=== PATIENT | female | born 1985 | race Two or more races ===

== ENCOUNTER 2022-03-17 12:36 | Emergency (ER) | payer SELFPAY ==
[2022-03-17] MEDS ORDERED: ONDANSETRON 4 MG/2 ML VIAL IVP STA (13:04)
[2022-03-17] MEDS ORDERED: SODIUM CHLORIDE 0.9% 1,000 ML IV STA (13:04)
[2022-03-17] MEDS ORDERED: KETOROLAC 15 MG/ML VIAL IVP STA (13:04)
--- NOTE | 2022-03-17 13:05 | ED Physician Documentation ---
PD HPI ABD PAIN - Stated complaint Stated Complaint: STOMACH PAIN,CHILLS SOA - Chief complaint Chief Complaint: Abd Pain - History obtained from History obtained from: Patient, Other (spanish interpreter) - Additional information Additional information: 36-year-old woman has had 2 weeks of constant epigastric pain radiating to the back and shoulders. It is worse after eating. Its associated with nausea and nonbloody emesis as well as occasional diarrhea and a fever to 100.4. She is never had this before. No history of abdominal surgeries. She has a history remotely of purpura that has resolved. No recent easy bleeding or bruising. Review of Systems Ten Systems: 10 systems reviewed and negative Constitutional: reports: Fever, Chills, Fatigue Throat: denies: Sore throat Cardiac: denies: Chest pain / pressure, Palpitations Respiratory: denies: Dyspnea PD PAST MEDICAL HISTORY - Present Medications Home Medications: Ambulatory Orders Medication Instructions Recorded Confirmed HYDROcod/ACETAM 5/325 [[place] 5/325] 1 - 2 tab PO Q6H PRN #20 tablet 03/17/22 - Allergies Allergies/Adverse Reactions: Allergies Allergy/AdvReac Type Severity Reaction Status Date / Time No Known Drug Allergies Allergy Verified 03/17/22 12:50 PD ED PE NORMAL - Vitals Vital signs reviewed: Yes (Normal vitals) - General General: Alert and oriented X 3, No acute distress - HEENT HEENT: PERRL, EOMI - Neck Neck: Supple, no meningeal sign, No bony TTP - Cardiac Cardiac: RRR, No murmur - Respiratory Respiratory: No respiratory distress, Clear bilaterally - Abdomen Abdomen: Normal bowel sounds, Other (Mild tenderness in the epigastrium and right upper quadrant with equivocal Herring sign) - Back Back: No CVA TTP, No spinal TTP - Derm Derm: Normal color, Warm and dry - Extremities Extremities: No edema, No calf tenderness / cord - Neuro Neuro: Alert and oriented X 3, Normal speech Results - Vitals Vitals: Vital Signs - 24 hr 03/17/22 12:44 Temperature 36.3 C L Heart Rate 66 Respiratory 16 Rate Blood Pressure 124/78 O2 Saturation 98 Oxygen O2 Source Room air - Labs Labs: Laboratory Tests 03/17/22 03/17/22 03/17/22 13:10 13:10 13:10 WBC 7.9 RBC 4.39 Hgb 13.0 Hct 39.0 MCV 88.8 MCH 29.6 MCHC 33.3 RDW 13.1 Plt Count 308 MPV 9.5 Neut # (Auto) 4.1 Lymph # (Auto) 2.2 [place] # (Auto) 0.9 Eos # (Auto) 0.6 Baso # (Auto) 0.0 Absolute Nucleated RBC 0.00 Nucleated RBC % 0.0 Sodium 140 Potassium 3.7 Chloride 108 Carbon Dioxide 26 Anion Gap 6.0 BUN 10 Creatinine 0.6 Estimated GFR (MDRD) 114 Glucose 97 Calcium 9.0 Total Bilirubin 0.9 AST 21 ALT 36 Alkaline Phosphatase 80 Total Protein 8.0 Albumin 4.0 Globulin 4.0 Albumin/Globulin Ratio 1.0 Lipase 39 Urine Color YELLOW Urine Clarity HAZY Urine pH 5.5 Ur Specific [place] >=1.030 H Urine Protein NEGATIVE Urine Glucose (UA) NEGATIVE Urine Ketones NEGATIVE Urine Occult Blood MODERATE H Urine Nitrite NEGATIVE Urine Bilirubin NEGATIVE Urine Urobilinogen 0.2 (NORMAL) Ur Leukocyte Esterase TRACE H Urine RBC 11-25 H Urine WBC 6-10 H Ur Squamous Epith Cells MOD Squamous H Urine Bacteria Few Ur Microscopic Review INDICATED Urine Culture Comments NOT INDICATED Urine HCG, Qual NEGATIVE PD MEDICAL DECISION MAKING - ED course ED course: 36-year-old woman presents with pain and nausea most consistent with biliary colic. Preliminary report from the surgical appliance fitter is that the gallbladder has multiple stones but no evidence of cholecystitis. Her common bile duct was normal. There was a question on ultrasound of choledocholithiasis, that said with a normal bile duct and no evidence of obstructive pattern on her labs I find this to be unlikely. She was feeling better after Toradol and Zofran and IV fluids. The patient and family were counseled as to the diagnosis and need for follow- up. I counseled the patient with regard to signs and symptoms that would necessitate an urgent reevaluation in the emergency department. They understand they are welcome to return at any time if worse or if not improving as expected. This document was made in part using voice recognition software. While efforts are made to proofread this documents, sound alike and grammatical errors may occur. Departure - Departure Disposition: 01 Home, Self Care Clinical Impression: Biliary colic Condition: Good Record reviewed to determine appropriate education?: Yes Instructions: ED Gallstone W Biliary Colic Follow-Up: [facility] [Provider Group] Prescriptions: HYDROcod/ACETAM 5/325 [[place] 5/325] 1 - 2 tab PO Q6H PRN #20 tablet PRN Reason: Pain Print Language: Khmer Comments: Tiene muchos clculos en la vescula biliar. Sin embargo, no hay signos de infeccin. Es probable que eventualmente necesite que le excluyan la vescula biliar. Llame al cirujano que aparece en joyce formulario el lunes para krish neil para la discusin. Regrese para sntomas nuevos o que empeoran. Coma krish dieta muy ligera con un mnimo de grasas y protenas, grasas y protenas empeorar schroeder dolor. Envi schroeder receta electrnicamente a [employer] en [place]. Estoy recetando un curso corto de analgsicos narcticos para usted. Estos son medicamentos potencialmente peligrosos y adictivos que deben usarse con cuidado. Estos medicamentos pueden estreirlo. [place] un ablandador de heces de venta valentina (docusato) dos veces al da con abundante agua mientras jennifer estos medicamentos. Si pasa 24 horas sin defecar, tome miralax de venta valentina, segn las instrucciones del paquete. No esmer ni conduzca mientras est tomando estos medicamentos. Si recibi medicamentos narcticos o sedantes mientras estaba en el departamento de emergencias, no conduzca kailyn 24 horas. Guarde joyce medicamento en un lugar seguro y fuera del alcance de los nios. Es krish violacin de la lazara federal chandu o detasseler joyce medicamento a otra persona o usarlo de krish manera distinta a la recetada. El ED no volver a surtir recetas de narcticos, incluidas las recetas perdidas o robadas. Para deshacerse de los medicamentos no deseados: 2. El Departamento de [place] de la [facility] acepta medicamentos recetados (solo en forma de pldora) para schroeder eliminacin kailyn todo el ao. Yury al para obtener ms informacin. 3. Comunquese con el Mobility Architect del [place] para el prximo evento de recoleccin de medicamentos recetados patrocinado por la OLGA. , [phone], o [phone];
[2022-03-17 13:22] LABS: BILIRUBIN,URINE NEGATIVE (NEGATIVE); GLUCOSE, URINE (UA) NEGATIVE (NEGATIVE); KETONES,URINE (UA) NEGATIVE (NEGATIVE); LEUKOCYTE ESTERASE, URINE TRACE (NEGATIVE); NITRITE,URINE NEGATIVE (NEGATIVE); OCCULT BLOOD,URINE MODERATE (NEGATIVE); PH,URINE 5.5 PH (5.0-7.5); PROTEIN,URINE NEGATIVE (NEGATIVE); UROBILINOGEN,URINE 0.2 (NORMAL) E.U./dL (NORMAL)
[2022-03-17 13:23] LABS: BASOPHILS % (AUTO) 0.4 %; EOSINOPHILS # (AUTO) 0.6 10^3/uL (0.0-0.7); EOSINOPHILS % (AUTO) 7.7 %; LYMPHOCYTES # (AUTO) 2.2 10^3/uL (1.5-3.5); LYMPHOCYTES % (AUTO) 28.4 %; MEAN CORPUSCULAR HEMOGLOBIN 29.6 pg (27.0-31.0); MEAN CORPUSCULAR HGB CONC 33.3 g/dL (32.0-36.0); MEAN CORPUSCULAR VOLUME 88.8 fL (81.0-99.0); MEAN PLATELET VOLUME 9.5 fL (7.9-10.8); MONOCYTES # (AUTO) 0.9 10^3/uL (0.0-1.0); NEUTROPHILS # (AUTO) 4.1 10^3/uL (1.5-6.6); NEUTROPHILS % (AUTO) 52.2 %; PLT - PLATELET COUNT 308 10^3/uL (130-450); RED BLOOD COUNT 4.39 10^6/uL (4.20-5.40); RED CELL DISTRIBUTION WIDTH 13.1 % (12.0-15.0); WHITE BLOOD COUNT 7.9 x10^3/uL (4.8-10.8)
[2022-03-17 13:25] LABS: CLARITY,URINE HAZY (CLEAR); HCG UR QUAL NEGATIVE
[2022-03-17 13:32] LABS: BACTERIA,URINE Few /HPF (None Seen); SQUAMOUS EPITHELIAL CELL,UR MOD Squamous (<= Few)
[2022-03-17 13:33] LABS: BILIRUBIN,TOTAL 0.9 mg/dL (0.2-1.0); CREATININE 0.6 mg/dL (0.4-1.0); POTASSIUM 3.7 mmol/L (3.5-5.0)
[2022-03-17 14:45] VITALS: BP 118/73
--- NOTE | 2022-03-17 14:46 | Ultrasound Report ---
PROCEDURE: Abdomen Limited INDICATIONS: epigastric/RUQ pain TECHNIQUE: Real-time focused scanning was performed of the abdomen, with image documentation. COMPARISON: None FINDINGS: This study is limited by body habitus and overlying bowel gas. The liver demonstrates normal size. The liver demonstrates moderately increased echogenicity, which limits ultrasound sensitivity for detection of masses. The main portal vein demonstrates normal size and hepatopedal flow. Multiple tiny gallstones are seen, which nearly fill the gallbladder lumen. The gallbladder wall does not appear thickened. There is no specific pericholecystic fluid. The sonographic Herring's sign is n egative. No biliary ductal dilatation is seen. The common bile duct measures 5 mm. There is a potential 6 mm common bile duct stone. Differential diagnosis includes artifact. The pancreas is not well seen. A 4 mm nonobstructing right-sided kidney stone is seen. The right kidney is otherwise unremarkable. IMPRESSION: There is a potential 6 mm common bile duct stone versus artifact. No deborah biliary dilatation is seen , however. When clinically appropriate, please consider a dedicated MRCP for further evaluation (assuming that t here is no contraindication). Numerous gallstones are seen, which nearly fill the gallbladder lumen. No additional sonographic sign s of cholecystitis are seen. Increased liver echogenicity is seen. This is nonspecific, yet it is most commonly attributed to fatt y infiltration. Note: Concordant preliminary findings given by the employee benefits attorney upon the completion of the examination to Dr. Sanchez. Reviewed by: Jaime Covarrubias MD on 03/17/2022 1:44 PM REY Approved by: Jaime Covarrubias MD on 03/17/2022 1:44 PM REY Station ID: [id number]
== END 2022-03-17 14:45 | disposition home or self-care (01) ==
LOC: ED 12:36
DX: K80.50 Calculus of bile duct without cholangitis or cholecystitis without obstruction (principal)
CPT/HCPCS: 36415; 80053; 81001; 81003; 81025; 83690; 85025; 87086; 96374; 99284

== ENCOUNTER 2023-07-27 08:00 | Outpatient (CLI) | payer SELFPAY | END 2023-07-27 23:59 | disposition home or self-care (01) | LOC: LAB.N 08:00 | PROVIDERS: ATTEND Family Medicine | DX: N39.0 Urinary tract infection, site not specified (principal) | CPT/HCPCS: 87086; 87181 ==

== ENCOUNTER 2024-02-17 18:26 | Outpatient (CLI) | payer SELFPAY | END 2024-02-17 23:59 | disposition critical access hospital (66) | LOC: EMS 18:26 | DX: R10.84 Generalized abdominal pain (principal); K92.0 Hematemesis; R19.7 Diarrhea, unspecified; M54.9 Dorsalgia, unspecified; R68.83 Chills (without fever) | CPT/HCPCS: A0425; A0429 ==

== ENCOUNTER 2024-02-17 18:47 | Emergency (ER) | payer SELFPAY ==
[2024-02-17 19:06] VITALS: O2SAT 98
[2024-02-17 19:21] LABS: BASOPHILS % (AUTO) 0.5 %; EOSINOPHILS # (AUTO) 0.5 10^3/uL (0.0-0.7); EOSINOPHILS % (AUTO) 5.1 %; HCT - HEMATOCRIT 41.5 % (37.0-47.0); HGB - HEMOGLOBIN 13.5 g/dL (12.0-16.0); LYMPHOCYTES # (AUTO) 2.7 10^3/uL (1.5-3.5); LYMPHOCYTES % (AUTO) 30.5 %; MEAN CORPUSCULAR HEMOGLOBIN 28.7 pg (27.0-31.0); MEAN CORPUSCULAR HGB CONC 32.5 g/dL (32.0-36.0); MEAN CORPUSCULAR VOLUME 88.1 fL (81.0-99.0); MEAN PLATELET VOLUME 9.2 fL (7.9-10.8); MONOCYTES # (AUTO) 0.6 10^3/uL (0.0-1.0); MONOCYTES % (AUTO) 6.5 %; NEUTROPHILS % (AUTO) 57.1 %; PLT - PLATELET COUNT 333 10^3/uL (130-450); RED BLOOD COUNT 4.71 10^6/uL (4.20-5.40); RED CELL DISTRIBUTION WIDTH 13.1 % (12.0-15.0); WHITE BLOOD COUNT 8.8 x10^3/uL (4.8-10.8)
[2024-02-17 19:40] LABS: ALBUMIN 4.2 g/dL (3.2-5.5); ALBUMIN/GLOBULIN RATIO 1.1 (1.0-2.2); BILIRUBIN,TOTAL 0.6 mg/dL (0.2-1.0); CALCIUM 9.5 mg/dL (8.5-10.3); CREATININE 0.6 mg/dL (0.6-1.3); TOTAL PROTEIN 7.9 g/dL (6.4-8.9)
[2024-02-17 20:05] LABS: BILIRUBIN,URINE NEGATIVE (NEGATIVE); GLUCOSE, URINE (UA) NEGATIVE (NEGATIVE); KETONES,URINE (UA) NEGATIVE (NEGATIVE); LEUKOCYTE ESTERASE, URINE SMALL (NEGATIVE); NITRITE,URINE NEGATIVE (NEGATIVE); OCCULT BLOOD,URINE LARGE (NEGATIVE); PROTEIN,URINE NEGATIVE (NEGATIVE); UROBILINOGEN,URINE 0.2 (NORMAL) E.U./dL (NORMAL)
[2024-02-17 20:06] LABS: CLARITY,URINE HAZY (CLEAR)
[2024-02-17 20:16] LABS: BACTERIA,URINE Few /HPF (None Seen); SQUAMOUS EPITHELIAL CELL,UR NONE SEEN (<= Few)
--- NOTE | 2024-02-17 20:33 | ED Physician Documentation ---
PD HPI ABD PAIN - Stated complaint Stated Complaint: ABD PX - Chief complaint Chief Complaint: Abd Pain - History obtained from History obtained from: Patient - Additional information Additional information: Patient is a 38-year-old female with a prior history of an appendectomy and cholecystectomy presenting for evaluation of generalized abdominal pain which has been present for 2 months. She reports that for the last months she has also had episodes of nausea and vomiting. She feels that the pain is worse after eating. She has not had prior evaluation for this pain. Her surgeries were a year ago. No diarrhea and she had a normal bowel movement a few hours ago. Does report having some discomfort with urination, denies hematuria. No fever. No chest pain or difficulty breathing. Telephone central office repairer used throughout encounter. Review of Systems Constitutional: denies: Fever Cardiac: denies: Chest pain / pressure Respiratory: denies: Dyspnea GI: reports: Abdominal Pain, Nausea, Vomiting. denies: Diarrhea : reports: Dysuria PD PAST MEDICAL HISTORY - Past Medical History Past Medical History: Yes - Past Surgical History Past Surgical History: Yes General: Cholecystectomy - Present Medications Home Medications: Ambulatory Orders Medication Instructions Recorded Confirmed HYDROcod/ACETAM 5/325 [[place] 5/325] 1 - 2 tab PO Q6H PRN #20 tablet 03/17/22 Ondansetron Odt [Zofran] 4 mg TL Q6H PRN #10 tablet 02/17/24 cephALEXin [Keflex] 500 mg PO Q6H #28 cap 02/17/24 - Allergies Allergies/Adverse Reactions: Allergies Allergy/AdvReac Type Severity Reaction Status Date / Time No Known Drug Allergies Allergy Verified 02/17/24 18:53 - Social History Does the pt smoke?: No Smoking Status: Never smoker Does the pt drink ETOH?: No Does the pt have substance abuse?: No - Immunizations Immunizations are current?: Yes - POLST Patient has POLST: No PD ED PE NORMAL - General General: Alert and oriented X 3, No acute distress, Well developed/nourished - HEENT HEENT: Atraumatic - Neck Neck: Supple, no meningeal sign - Cardiac Cardiac: RRR, Strong equal pulses - Respiratory Respiratory: No respiratory distress, Clear bilaterally - Abdomen Abdomen: Normal bowel sounds, Soft, Non distended, Other (Left-sided abdominal tenderness, no rebound, no guarding, no mass) - Derm Derm: Warm and dry - Neuro Neuro: Normal speech Results - Vitals Vitals: Vital Signs - 24 hr 02/17/24 02/17/24 02/17/24 18:53 20:58 23:05 Temperature 36.8 C Heart Rate 74 72 76 Respiratory 16 16 18 Rate Blood Pressure 114/80 118/76 120/81 H O2 Saturation 98 98 98 Oxygen O2 Source Room air - Labs Labs: Laboratory Tests 02/17/24 02/17/24 02/17/24 19:15 19:15 19:54 WBC 8.8 RBC 4.71 Hgb 13.5 Hct 41.5 MCV 88.1 MCH 28.7 MCHC 32.5 RDW 13.1 Plt Count 333 MPV 9.2 Neut # (Auto) 5.0 Lymph # (Auto) 2.7 [place] # (Auto) 0.6 Eos # (Auto) 0.5 Baso # (Auto) 0.0 Absolute Nucleated RBC 0.00 Nucleated RBC % 0.0 Sodium 137 Potassium 4.0 Chloride 104 Carbon Dioxide 28 Anion Gap 5.0 L BUN 12 Creatinine 0.6 Estimated GFR (MDRD) 113 Glucose 120 H Calcium 9.5 Total Bilirubin 0.6 AST 19 ALT 31 Alkaline Phosphatase 119 Total Protein 7.9 Albumin 4.2 Globulin 3.7 Albumin/Globulin Ratio 1.1 Lipase 34 Urine Color YELLOW Urine Clarity HAZY Urine pH 6.0 Ur Specific [place] 1.010 Urine Protein NEGATIVE Urine Glucose (UA) NEGATIVE Urine Ketones NEGATIVE Urine Occult Blood LARGE H Urine Nitrite NEGATIVE Urine Bilirubin NEGATIVE Urine Urobilinogen 0.2 (NORMAL) Ur Leukocyte Esterase SMALL H Urine RBC 6-10 H Urine WBC 6-10 H Ur Squamous Epith Cells NONE SEEN Urine Bacteria Few Ur Microscopic Review INDICATED Urine Culture Comments INDICATED Urine HCG, Qual 02/17/24 19:54 WBC RBC Hgb Hct MCV MCH MCHC RDW Plt Count MPV Neut # (Auto) Lymph # (Auto) [place] # (Auto) Eos # (Auto) Baso # (Auto) Absolute Nucleated RBC Nucleated RBC % Sodium Potassium Chloride Carbon Dioxide Anion Gap BUN Creatinine Estimated GFR (MDRD) Glucose Calcium Total Bilirubin AST ALT Alkaline Phosphatase Total Protein Albumin Globulin Albumin/Globulin Ratio Lipase Urine Color Urine Clarity Urine pH Ur Specific [place] Urine Protein Urine Glucose (UA) Urine Ketones Urine Occult Blood Urine Nitrite Urine Bilirubin Urine Urobilinogen Ur Leukocyte Esterase Urine RBC Urine WBC Ur Squamous Epith Cells Urine Bacteria Ur Microscopic Review Urine Culture Comments Urine HCG, Qual NEGATIVE PD Medical Decision Making - ED course Complexity details: reviewed results, re-evaluated patient, d/w patient ED course: Patient is a 38-year-old female presenting for evaluation of generalized abdominal pain which has been ongoing for 2 months with reported nausea and vomiting. She has mild left-sided tenderness on exam. No pelvic discomfort. Vital signs are stable. CBC and chemistries are unrevealing. Urinalysis has some markers for infection and she does report having some dysuria. CT scan of the abdomen pelvis was obtained which I reviewed With no signs of infection or obstruction. IV morphine and Zofran were ordered for the patient but RN tells me that patient's line infiltrated so he does not believe she actually received any of this medication. She has been otherwise doing well here and resting comfortably. She understands plan for treatment for UTI as well as need for close follow-up as I do not feel that her symptoms over the course of 2 months are solely related to a UTI. Patient counseled on concerning symptoms to return for. Departure - Departure Disposition: 01 Home, Self Care Clinical Impression: Abdominal pain, UTI (urinary tract infection) Condition: Stable Instructions: ED Abdominal Pain Female Non-Specific Abdominal Pain, ED UTI Cystitis Female Prescriptions: cephALEXin [Keflex] 500 mg PO Q6H #28 cap Ondansetron Odt [Zofran] 4 mg TL Q6H PRN #10 tablet PRN Reason: Nausea / Vomiting Print Language: Nepali Comments: I have sent an antibiotic prescription to [facility] as well as an ant inausea medicine. Your abdominal CT does not show any new findings. You do need close follow-up with your primary care provider as your symptoms have been ongoing for 2 months and I do not think that the urine infection necessarily explains at all. Return to the ER if you develop any worsening symptoms. Forms: PCP List, Activity restrictions Discharge Date/Time: 02/17/24 23:06
[2024-02-17 20:34] LABS: HCG UR QUAL NEGATIVE
[2024-02-17] MEDS: MORPHINE 2 MG/ML CARPUJECT IVP STA (20:36)
[2024-02-17] MEDS: ONDANSETRON 4 MG/2 ML VIAL IVP STA (20:37)
[2024-02-17] MEDS: SODIUM CHLORIDE 0.9% 1,000 ML IV STA (20:37)
[2024-02-17] MEDS ORDERED: iohexoL-300 100 ML VIAL ONE (21:20)
[2024-02-17] MEDS: iohexoL-300 100 ML VIAL IVP ONE (21:39)
--- NOTE | 2024-02-17 21:56 | CT Report ---
PROCEDURE: Abdomen/Pelvis W INDICATIONS: L > R abd pain CONTRAST: Omni 300, 100mls TECHNIQUE: After the administration of intravenous contrast, a CT scan of the abdomen and pelvis was performed. Images were recorded and evaluated at appropriate window settings. Reformats: coronal and sagittal. F or radiation dose reduction, the following was used: automated exposure control, adjustment of mA and /or kV according to patient size. COMPARISON: Ultrasound of abdomen dated 03/17/2022. FINDINGS: Image quality: Diagnostic. Lower chest: Unremarkable. Liver: No solid mass. Gallbladder: Gallbladder is surgically absent. Biliary tree: No intrahepatic or extrahepatic dilation, accounting for age. Spleen: No splenomegaly. Pancreas: No pancreatic ductal dilation. Adrenals: No adrenal nodule. Kidneys and ureters: No hydronephrosis. No renal cystic lesion which requires follow up. No solid mas s. Stomach, bowel and peritoneum: No gastric or small bowel dilation. No abnormal wall thickening. No pa thologic free fluid. There is prior appendectomy. Mild sigmoid diverticulosis is seen without CT evid ence of acute diverticulitis. No peritoneal free air. Lymph nodes: No central or retroperitoneal adenopathy. Vessels: No infrarenal aortic aneurysm. Patent portal vein. PELVIS Reproductive organs: Intrauterine device is noted in its normal central endometrial location. No ted s abnormality is seen in bilateral ovaries.. Bladder: No abnormal wall thickening, accounting for underdistention. Pelvic lymph nodes: No pelvic adenopathy by size criteria. Bones: No aggressive osseous abnormality. Other: No significant ventral or inguinal hernia. IMPRESSION: 1. No acute inflammatory process is seen in abdomen or pelvis. No free fluid of free air. 2. Prior appendectomy and cholecystectomy. 3. Intrauterine device is noted and is in its expected central endometrial location. Reviewed by: Jose Espinal MD on 02/17/2024 9:55 PM PDT Approved by: Jose Espinal MD on 02/17/2024 9:55 PM PDT Station ID: [id number]
[2024-02-17] MEDS: cephALEXin 250 MG CAPSULE PO STA (22:34)
[2024-02-17 23:08] VITALS: BP 120/81
== END 2024-02-17 23:06 | disposition home or self-care (01) ==
LOC: EDUNIT# → ED 18:47
DX: N39.0 Urinary tract infection, site not specified (principal)
CPT/HCPCS: 36415; 74177; 80053; 81001; 81025; 83690; 85025; 87086; 96374; 99284; A9270; Q9967; 81003